=== PATIENT | male | born 1950 | race Caucasian/White ===

== ENCOUNTER 2020-08-15 11:06 | Outpatient (RCR) | payer MEDICARE, SELFPAY | END 2020-08-15 23:59 | LOC: IMMUN 11:06 | PROVIDERS: PCP Student in an Organized Health Care Education/Training Program; Referring Provider Family Medicine; Visit Provider Family Medicine | DX: Z23 Encounter for immunization (principal) | CPT/HCPCS: 0011A; 0012A; 91301 ==